=== PATIENT | male | born 1990 | race Caucasian/White ===

== ENCOUNTER 2020-12-11 12:56 | Emergency (ER) | payer MEDICAID, OTHER ==
[~2020-12-11] VITALS: Ht 172.7 cm; Wt 113.4 kg
--- NOTE | 2020-12-11 13:00 | NUR ---
at bedside in room 5a for MSE.
[2020-12-11 13:23] LABS: HEMATOCRIT 44.2 % (36.7-47.1); MEAN CORPUSCULAR HEMOGLOBIN 29.7 uug (23.8-33.4); MEAN CORPUSCULAR VOLUME 87.7 fL (73.0-96.2); PLATELET COUNT (AUTO) 332 K/uL (152-348)
[2020-12-11 13:34] LABS: ALANINE AMINOTRANSFERASE 34 U/L (16-63); ALKALINE PHOSPHATASE 60 U/L (50-136); ASPARTATE AMINOTRANSFERASE 24 U/L (15-37); BILIRUBIN,DIRECT 0.2 mg/dL (0.0-0.2); BILIRUBIN,TOTAL 0.6 mg/dL (0.2-1.0); CARBON DIOXIDE 27 mmol/L (21-32); CHLORIDE 106 mmol/L (98-107); CREATININE 0.8 mg/dL (0.6-1.3); GLUCOSE 100 mg/dL (74-106); POTASSIUM 4.5 mmol/L (3.5-5.1); TOTAL PROTEIN, SERUM 7.2 g/dL (6.4-8.2); UREA NITROGEN, BLOOD 14 mg/dL (7-18)
[2020-12-11 13:38] LABS: ACETAMINOPHEN < 2.0 ug/mL (10-30)
[2020-12-11 13:43] LABS: ETHANOL < 3 MG/DL (0-0)
[2020-12-11] MEDS: IV NORMAL SALINE 1000 ML BAG IV ONE (13:44)
[2020-12-11 14:41] LABS: *BILIRUBIN,URIN NEGATIVE (NEGATIVE); *BLOOD, URINE NEGATIVE (NEGATIVE); *CLARITY,URINE CLEAR (CLEAR); *COLOR,URINE YELLOW (YELLOW); *KETONES,URINE NEGATIVE (NEGATIVE); *UROBILINOGEN,URINE 0.2 E.U./dl (NORMAL); LEUKOCYTE ESTERASE ,URINE NEGATIVE (NEGATIVE); NITRITE, URINE NEGATIVE (NEGATIVE); PH,URINE 6.5 (5.0-8.0); UGLUCOSE NEGATIVE (NEGATIVE)
[2020-12-11 14:47] LABS: *AMPHETAMINE, URINE POSITIVE (NEGATIVE); *CANNABINOID, URINE NEGATIVE (NEGATIVE); *COCCAINE, URINE NEGATIVE (NEGATIVE); *OPIATE, URINE NEGATIVE (NEGATIVE); *PHENCYCLIDINE SCREEN,URINE NEGATIVE (NEGATIVE)
--- NOTE | 2020-12-11 20:55 | NUR ---
IV removed. Catheter intact and site benign. Pressure and 4x4 gauze applied to site. No bleeding noted.
--- NOTE | 2020-12-11 20:56 | NUR ---
Patient discharged to home in stable condition. Written and verbal after care instructions given. Family verbalizes understanding of instructions. Stressed follow up or return to ER for worsening s/s. No indication of SI.
[2020-12-11 20:58] VITALS: BP 119/70
== END 2020-12-11 20:58 | disposition home or self-care (01) ==
LOC: ER 12:56
DX: F29 Unspecified psychosis not due to a substance or known physiological condition (principal); F15.129 Other stimulant abuse with intoxication, unspecified; F25.9 Schizoaffective disorder, unspecified; Z20.822 Contact with and (suspected) exposure to COVID-19
CPT/HCPCS: 36415; 70450; 85025; 93005; A4663; G0480; J7030